=== PATIENT | female | born 1945 | race Caucasian/White ===

== ENCOUNTER 2021-08-16 12:11 | Emergency (ER) | payer MEDICARE ==
[~2021-08-16] VITALS: Ht 165.1 cm; Wt 63.0 kg
[2021-08-16] MEDS ORDERED: HYDROCO/APAP1 TA9 PO (14:48)
[2021-08-16 15:06] VITALS: BP 164/69
== END 2021-08-16 15:07 | disposition home or self-care (01) ==
LOC: ED 12:11
DX: M79.18 Myalgia, other site (principal); I10 Essential (primary) hypertension; E78.00 Pure hypercholesterolemia, unspecified; J45.909 Unspecified asthma, uncomplicated

== ENCOUNTER 2022-09-09 10:43 | Emergency (ER) | payer MEDICARE ==
[~2022-09-09] VITALS: Ht 165.1 cm; Wt 62.7 kg
[~2022-09-09 10:43] MED LIST: HYDROCO/APAP1 TA9 PO
[2022-09-09 10:51] VITALS: BP 159/60
[2022-09-09 11:42] LABS: URINE BILIRUBIN - DIPSTICK NEGATIVE (NEGATIVE); URINE BLOOD DIPSTICK TRACE-INTACT (NEGATIVE); URINE COLOR YELLOW; URINE GLUCOSE - DIPSTICK NEGATIVE (NEGATIVE); URINE KETONE NEGATIVE (NEGATIVE); URINE PROTEIN - DIPSTICK NEGATIVE (NEG-TRACE); URINE UROBILINOGEN - DIPSTICK 0.2 E.U./dL (0.2)
[2022-09-09 11:57] LABS: URINE LEUK ESTERASE MODERATE (NEGATIVE); URINE NITRITE - DIPSTICK NEGATIVE (Negative)
[2022-09-09 12:10] LABS: URINE SQUAMOUS EPITHELIAL CELL FEW EPI/hpf (0-FEW); URINE TRANSITIONAL EPI. CELLS FEW hpf; URINE WBC >100 WBC/hpf (0-5)
[2022-09-09 12:11] LABS: URINE BACTERIA FEW hpf
[2022-09-09] MEDS ORDERED: MACROBID100 M1 PO ×2 (12:15→12:22)
[2022-09-09 12:25] VITALS: BP 153/68
--- NOTE | 2022-09-11 13:31 | NUR ---
Attempted to call patient regaurding urine culture results. The patient list many allergies and will need to follow up with PCP unless she can tolerate cipro.
== END 2022-09-09 12:28 | disposition home or self-care (01) ==
LOC: ED 10:43
PROVIDERS: Nurse Practitioner
DX: N39.0 Urinary tract infection, site not specified (principal); I10 Essential (primary) hypertension; E78.00 Pure hypercholesterolemia, unspecified; B96.4 Proteus (mirabilis) (morganii) as the cause of diseases classified elsewhere